=== PATIENT | male | born 1940 | race Caucasian/White ===

== ENCOUNTER 2017-10-27 12:35 | Inpatient (IN) | payer MEDICARE, MEDICAID ==
--- NOTE | 2017-10-27 13:25 | C.PDOC ---
History Of Present Illness 76yo male, history of HTN, diabetes, hyperlipidemia, presents to ED with complaints of bilateral leg weakness and pain to his hips and knees for the past few days. States he has been unable to walk home and he lives alone. He denies any falls or injuries. He also denies any chest pain, shortness of breath. Time Seen by Provider: 10/27/17 13:00 Chief Complaint (Nursing): Medical Clearance History Per: Patient History/Exam Limitations: no limitations Onset/Duration Of Symptoms: Days Current Symptoms Are (Timing): Still Present Past Medical History Reviewed: Historical Data, Nursing Documentation, Vital Signs Vital Signs: Last Vital Signs Temp 97.8 F 10/30/17 08:19 Pulse 109 H 10/30/17 08:19 Resp 20 10/30/17 08:19 BP 117/73 10/30/17 08:19 Pulse Ox 95 10/30/17 08:19 - Medical History PMH: Diabetes, HTN, Hypercholesterolemia Surgical History: Cholecystectomy - [facility] Procedures CLOSURE SKIN & SUBCUTANEOUS NEC (04/13/13) CUT & PREP PEDICLE GRAFT (03/01/13) ENDOSCOPIC REMOVAL OF STONE(S) FROM BILIARY TRACT (04/19/15) ENDOSCOPIC SPHINCTEROTOMY AND PAPILLOTOMY (04/19/15) EXCIS DEBRIDE OF WOUND, INFECT, OR BURN (03/01/13) LOC EXC LES METATAR/TAR (04/13/13) NONEXCIS DEBRID OF WOUND, INFECT, OR BURN (04/13/13) OTHER SKIN & SUBQ I D (04/13/13) PACKED CELL TRANSFUSION (04/13/13) TOE AMPUTATION (04/13/13) Family History: States: Unknown Family Hx - Social History Hx Tobacco Use: Yes Hx Alcohol Use: Yes (SOIALLY) Hx Substance Use: No - Immunization History Hx Tetanus Toxoid Vaccination: No Hx Influenza Vaccination: No Hx Pneumococcal Vaccination: No Review Of Systems Except As Marked, All Systems Reviewed And Found Negative. Constitutional: Negative for: Fever, Chills Cardiovascular: Negative for: Chest Pain Respiratory: Negative for: Shortness of Breath Gastrointestinal: Negative for: Abdominal Pain Musculoskeletal: Positive for: Leg Pain Neurological: Positive for: Weakness Physical Exam - Physical Exam Appears: Non-toxic, Other (cachectic appearing) Neck: Normal ROM, Supple Chest: Symmetrical Cardiovascular: Rhythm Regular Respiratory: Normal Breath Sounds Gastrointestinal/Abdominal: Normal Exam, Soft, No Tenderness Back: Normal Inspection, No CVA Tenderness Extremity: Normal ROM, Tenderness (mild tenderness to hips and knees bilaterally ), No Pedal Edema, No Swelling Neurological/Psych: Oriented x3, Normal Speech, Normal Cognition, Normal Motor ED Course And Treatment - Laboratory Results Result Diagrams: 10/29/17 06:31 0218 06:31 Medical Decision Making Medical Decision Making: Impression: Bilateral lower extremity pain ro metabolic, dvt, fx Plan: -- Labs -- XR knees bilateral -- XR Hips bilateral -- Venous Duplex Exam Bilateral lower extremities -- Toradol 30mg IVP dvt study neg. imaging neg as read by me. urine neg. noted na. urine lytes sent. discussed case with dr brown, accpets for admission, requests empiric antibiotics. ceftriaxone dosed Disposition - Disposition Disposition: HOSPITALIZED Disposition Time: 15:05 Condition: STABLE - Clinical Impression Clinical Impression: Hyponatremia, Leukocytosis - Scribe Statement The provider has reviewed the documentation as recorded by the Scribe (Aixa Corral) Provider Attestation: All medical record entries made by the Scribe were at my direction and personally dictated by me. I have reviewed the chart and agree that the record accurately reflects my personal performance of the history, physical exam, medical decision making, and the department course for this patient. I have also personally directed, reviewed, and agree with the discharge instructions and disposition. Decision To Admit - . Bed Request Type: Regular Admitting Physician: Mary Brown Patient Diagnosis: Hyponatremia, Leukocytosis
[2017-10-27 14:09] LABS: BASO # 0.1 K/uL (0.0-0.2); BASO % 0.7 % (0.0-2.0); EOS # 0.2 K/uL (0.0-0.7); EOS % 1.7 % (0.0-4.0); HEMOGLOBIN 12.1 g/dL (12.0-18.0); LYMPH % 7.8 % (20.0-40.0); MEAN CORPUSCULAR HGB CONC 34.4 g/dL (33.0-37.0); MONO # 0.6 K/uL (0.0-0.8); MONO % 4.6 % (0.0-10.0); NEUT # 11.4 K/uL (1.8-7.0); NEUT % 85.2 % (50.0-75.0); PLATELET COUNT 173 K/uL (130-400); RBC 3.78 Mil/uL (4.40-5.90); RED CELL DISTRIBUTION WIDTH 12.1 % (11.5-14.5); WHITE BLOOD COUNT 13.4 K/uL (4.8-10.8)
[2017-10-27 14:20] LABS: ALB/GLOB RATIO 0.7 (1.0-2.1); ALBUMIN 2.9 g/dL (3.5-5.0); ALT/SGPT 20 U/L (21-72); AST/SGOT 25 U/L (17-59); BLOOD UREA NITROGEN 18 mg/dL (9-20); CALCIUM 8.7 mg/dl (8.6-10.4); GFR AFRICAN-AMERICAN > 60; GFR NON-AFRICAN AMERICAN > 60
[2017-10-27 14:29] LABS: INR 1.2; PROTHROMBIN TIME 13.8 SECONDS (9.7-12.2)
[2017-10-27 14:36] LABS: SQUAMOUS EPITHIAL 1 /hpf (0-5); URINE BILIRUBIN NEGATIVE (NEGATIVE); URINE BLOOD 1+ (NEGATIVE); URINE CLARITY Clear (Clear); URINE COLOR Yellow (YELLOW); URINE GLUCOSE (UA) NORMAL (Normal); URINE LEUKOCYTE ESTERASE NEG Leu/uL (Negative); URINE NITRATE NEGATIVE (NEGATIVE); URINE PROTEIN NEGATIVE (NEGATIVE)
[2017-10-27 14:54] LABS: EOSINOPHIL 6 % (0-4); LYMPHOCYTE 9 % (20-40); MONOCYTE 5 % (0-10); NEUTROPHIL 80 % (50-75); PLATELET ESTIMATE NORMAL (NORMAL); TOTAL CELLS COUNTED 100
[2017-10-27] MEDS ORDERED: cefTRIAXone IV 1 gm in Dextros 50 ML IVPB ONE (15:02)
--- NOTE | 2017-10-27 15:22 | RAD ---
PROCEDURE: Bilateral Knee Radiographs. HISTORY: pain COMPARISON: None. FINDINGS: BONES: Right Knee: No fracture Left Knee: No fracture JOINTS: Right Knee: Paucity of osteoarthritis the patient is 76 years of age. Left knee: Same as above SOFT TISSUES: Right Knee: Arterial calcification Left Knee: Same as above JOINT EFFUSION: Right Knee: None. Left Knee: None. OTHER FINDINGS: None. IMPRESSION: Minimal osteoarthrosis bilateral medial femoral tibial compartments most notable. Asymmetrical sclerosis and mild cortical hyperostoses left patella. No fractures Bilateral anterior calcifications
--- NOTE | 2017-10-27 15:31 | RAD ---
PROCEDURE: HISTORY: pain COMPARISON: [facility] 04/18/2015 ; no prior hips TECHNIQUE: AP view of the pelvis and applicable frog leg views obtained. FINDINGS: Prominent lumbosacral spondylosis -similar Bilateral hemipelvic atherosclerotic calcifications. Bilateral hip arthrosis. Right inferior pubic ramus on this exam slightly thicker in appearance possibly technical no acute fracture dislocation suggested. IMPRESSION: No acute fracture or lytic lesion. Multifocal arthrosis
[2017-10-27] MEDS: Sodium Chloride 0.9% 1,000 ML IV SCH (16:22)
[2017-10-27] MEDS ORDERED: Sodium Chloride 0.9% 1,000 ML ONE (16:39)
--- NOTE | 2017-10-27 16:49 | VASCLAB ---
PROCEDURE: Lower Extremity Venous Duplex Exam. HISTORY: leg pain PRIORS: None. TECHNIQUE: Bilateral common femoral, femoral, popliteal and posterior tibial, peroneal and great saphenous veins were evaluated. Flow was assessed with color Doppler, compressibility, assessment of phasic flow and augmentation response. Report prepared by TERRI Zaidi, RVT FINDINGS: RIGHT: 1. Common Femoral Vein: 1.1. Compressibility - Fully compressible: Thrombus - None : Flow - Phasic: Augmentation -Normal: Reflux - None. 2. Femoral Vein: 2.1. Compressibility - Fully compressible: Thrombus - None : Flow - Phasic: Augmentation -Normal: Reflux - None. 3. Popliteal Vein: 3.1. Compressibility - Fully compressible: Thrombus - None : Flow - Phasic: Augmentation -Normal: Reflux - None. 4. Posterior Tibial Vein: 4.1. Compressibility - Fully compressible: Thrombus - None: Flow - Phasic: Augmentation -Normal: Reflux - None. 5. Peroneal Vein: 5.1. Compressibility - Fully compressible: Thrombus - None: Flow - Phasic: Augmentation -Normal: Reflux - None. 6. Great Saphenous Vein: 6.1. Compressibility - Fully compressible: Thrombus - None: Flow - Phasic: Augmentation - Normal: Reflux - None. LEFT: 1. Common Femoral Vein: 1.1. Compressibility - Fully compressible: Thrombus - None: Flow - Phasic: Augmentation -Normal: Reflux - None. 2. Femoral Vein: 2.1. Compressibility - Fully compressible: Thrombus - None: Flow - Phasic: Augmentation -Normal: Reflux - None. 3. Popliteal Vein: 3.1. Compressibility - Fully compressible: Thrombus - None : Flow - Phasic: Augmentation -Normal: Reflux - None. 4. Posterior Tibial Vein: 4.1. Compressibility - Fully compressible: Thrombus - None: Flow - Phasic: Augmentation -Normal: Reflux - None. 5. Peroneal Vein: 5.1. Compressibility - Fully compressible: Thrombus - None: Flow - Phasic: Augmentation -Normal: Reflux - None. 6. Great Saphenous Vein: 6.1. Compressibility - Fully compressible: Thrombus - None: Flow - Phasic: Augmentation - Normal: Reflux - None. OTHER FINDINGS: Right: None significant. Left: None significant. IMPRESSION: Right: No evidence of deep or superficial vein thrombosis of the right lower extremity. Normal valve function noted of the right side. Left: No evidence of deep or superficial vein thrombosis of the left lower extremity. Normal valve function noted of the left side.
--- NOTE | 2017-10-27 16:54 | CP.PCM.HP ---
Past Patient History - Past Social History Smoking Status: Current Some Days Smoker - CARDIAC Hx Hypercholesterolemia: Yes Hx Hypertension: Yes - HEENT Hx Cataracts: Yes - ENDOCRINE/METABOLIC Hx Diabetes Mellitus Type 2: Yes - MUSCULOSKELETAL/RHEUMATOLOGICAL Hx Falls: Yes - PSYCHIATRIC Hx Substance Use: No - SURGICAL HISTORY Hx Cholecystectomy: Yes - ANESTHESIA Hx Anesthesia: Yes Hx Anesthesia Reactions: No Hx Malignant Hyperthermia: No Meds Allergies/Adverse Reactions: Allergies Allergy/AdvReac Type Severity Reaction Status Date / Time No Known Allergies Allergy Verified 11/15/16 14:12 Physical Exam - Constitutional Appears: Well - Head Exam Head Exam: ATRAUMATIC, NORMAL INSPECTION, NORMOCEPHALIC - Eye Exam Eye Exam: EOMI, Normal appearance, PERRL Pupil Exam: NORMAL ACCOMODATION, PERRL - ENT Exam ENT Exam: Mucous Membranes Moist, Normal Exam - Neck Exam Neck exam: Positive for: Normal Inspection - Respiratory Exam Respiratory Exam: Decreased Breath Sounds - Cardiovascular Exam Cardiovascular Exam: REGULAR RHYTHM, +S1, +S2 - GI/Abdominal Exam GI & Abdominal Exam: Diminished Bowel Sounds, Soft - Rectal Exam Rectal Exam: Deferred Results - Vital Signs Recent Vital Signs: Last Vital Signs Temp 98.5 F 10/27/17 13:56 Pulse 105 H 10/27/17 15:58 Resp 18 10/27/17 15:58 BP 131/77 10/27/17 15:58 Pulse Ox 97 10/27/17 15:58 - Labs Result Diagrams: 10/28/17 10:59 10/28/17 10:59 Labs: Laboratory Results - last 24 hr 10/27/17 10/27/17 10/27/17 14:05 14:05 14:05 WBC 13.4 H D RBC 3.78 L Hgb 12.1 Hct 35.1 MCV 93.0 D MCH 32.0 H MCHC 34.4 RDW 12.1 Plt Count 173 MPV 10.0 Neut % (Auto) 85.2 H Lymph % (Auto) 7.8 L [place] % (Auto) 4.6 Eos % (Auto) 1.7 Baso % (Auto) 0.7 Neut # 11.4 H Lymph # 1.0 [place] # 0.6 Eos # 0.2 Baso # 0.1 Neutrophils % (Manual) 80 H Lymphocytes % (Manual) 9 L Monocytes % (Manual) 5 Eosinophils % (Manual) 6 H Platelet Estimate Normal RBC Morphology Normal PT 13.8 H INR 1.2 APTT 30 Sodium 126 L Potassium 5.0 Chloride 95 L Carbon Dioxide 27 Anion Gap 9 L BUN 18 Creatinine 0.8 Est GFR ( Amer) > 60 Est GFR (Non-Af Amer) > 60 Random Glucose 177 H Calcium 8.7 Total Bilirubin 0.6 AST 25 ALT 20 L D Alkaline Phosphatase 117 Total Protein 7.4 Albumin 2.9 L Globulin 4.5 H Albumin/Globulin Ratio 0.7 L Urine Color Urine Clarity Urine pH Ur Specific [place] Urine Protein Urine Glucose (UA) Urine Ketones Urine Blood Urine Nitrate Urine Bilirubin Urine Urobilinogen Ur Leukocyte Esterase Urine WBC (Auto) Urine RBC (Auto) Ur Squamous Epith Cells Influenza Typ A,B (EIA) 10/27/17 10/27/17 14:22 15:03 WBC RBC Hgb Hct MCV MCH MCHC RDW Plt Count MPV Neut % (Auto) Lymph % (Auto) [place] % (Auto) Eos % (Auto) Baso % (Auto) Neut # Lymph # [place] # Eos # Baso # Neutrophils % (Manual) Lymphocytes % (Manual) Monocytes % (Manual) Eosinophils % (Manual) Platelet Estimate RBC Morphology PT INR APTT Sodium Potassium Chloride Carbon Dioxide Anion Gap BUN Creatinine Est GFR ( Amer) Est GFR (Non-Af Amer) Random Glucose Calcium Total Bilirubin AST ALT Alkaline Phosphatase Total Protein Albumin Globulin Albumin/Globulin Ratio Urine Color Yellow Urine Clarity Clear Urine pH 6.0 Ur Specific [place] 1.013 Urine Protein Negative Urine Glucose (UA) Normal Urine Ketones Trace Urine Blood 1+ H Urine Nitrate Negative Urine Bilirubin Negative Urine Urobilinogen 4.0 Ur Leukocyte Esterase Neg Urine WBC (Auto) 1 Urine RBC (Auto) 11 H Ur Squamous Epith Cells 1 Influenza Typ A,B (EIA) Negative for flu a/b Assessment & Plan - Assessment and Plan (Free Text) Plan: rocephin protonix lovenox icf id consult dr. sirisha cline same no more dizzyness
[2017-10-27 17:11] VITALS: RESP 20
[2017-10-27] MEDS: Insulin Detemir 100 units/ml Vial (Levemir) SC SCH (18:29)
[2017-10-28 05:31] LABS: OSMOLALITY,URINE 458 mosm/kg (300-1000)
[2017-10-28] MEDS: Sodium Chloride 0.9% 1,000 ML IV SCH ×3 (05:41→15:05)
[2017-10-28] MEDS: Insulin Detemir 100 units/ml Vial (Levemir) SC SCH ×2 (11:05→17:42)
[2017-10-28 11:09] LABS: BASO # 0.1 K/uL (0.0-0.2); BASO % 0.7 % (0.0-2.0); EOS # 0.2 K/uL (0.0-0.7); EOS % 1.8 % (0.0-4.0); HEMOGLOBIN 11.8 g/dL (12.0-18.0); LYMPH # 1.1 K/uL (1.0-4.3); LYMPH % 8.4 % (20.0-40.0); MEAN CELL VOLUME 92.5 fL (80.0-94.0); MEAN CORPUSCULAR HEMOGLOBIN 31.9 pg (27.0-31.0); MEAN CORPUSCULAR HGB CONC 34.5 g/dL (33.0-37.0); MEAN PLATELET VOLUME 10.1 fL (7.2-11.7); MONO # 0.9 K/uL (0.0-0.8); NEUT # 10.8 K/uL (1.8-7.0); NEUT % 82.1 % (50.0-75.0); NRBC % 0.1 % (0.0-2.0); PLATELET COUNT 167 K/uL (130-400); RED CELL DISTRIBUTION WIDTH 12.2 % (11.5-14.5); WHITE BLOOD COUNT 13.2 K/uL (4.8-10.8)
[2017-10-28 11:25] LABS: GFR AFRICAN-AMERICAN > 60; GFR NON-AFRICAN AMERICAN > 60
[2017-10-28 11:37] LABS: BLOOD UREA NITROGEN 16 mg/dL (9-20); CALCIUM 8.7 mg/dl (8.6-10.4)
[2017-10-28 12:38] LABS: BANDS 3 % (0-2); EOSINOPHIL 4 % (0-4); LYMPHOCYTE 10 % (20-40); MONOCYTE 4 % (0-10); NEUTROPHIL 79 % (50-75); PLATELET ESTIMATE NORMAL (NORMAL); TOTAL CELLS COUNTED 100
--- NOTE | 2017-10-28 13:15 | RAD ---
HISTORY: leukocytosis COMPARISON: Chest radiograph dated 11/15/2016. FINDINGS: LUNGS: Stable chronic prominence of the bilateral interstitial markings with fibrotic changes. No focal consolidation. PLEURA: No significant pleural effusion identified, no pneumothorax apparent. CARDIOVASCULAR: Atherosclerotic aortic calcifications. Cardiomediastinal silhouette stably prominent. OSSEOUS STRUCTURES: Unchanged. VISUALIZED UPPER ABDOMEN: Normal. OTHER FINDINGS: None. IMPRESSION: Stable chronic prominence of the bilateral interstitial markings with fibrotic changes. No focal consolidation or pleural effusion.
--- NOTE | 2017-10-28 18:17 | CP.PCM.PN ---
Subjective - Date & Time of Evaluation Date of Evaluation: 10/28/17 Time of Evaluation: 08:20 - Subjective Subjective: clinically same Objective - Vital Signs/Intake and Output Vital Signs (last 24 hours): Temp Pulse Resp BP Pulse Ox 98.8 F 103 H 20 124/73 96 10/28/17 08:04 10/28/17 14:58 10/28/17 08:04 10/28/17 14:58 10/28/17 14:58 Intake and Output: 10/28/17 10/28/17 06:59 18:59 Intake Total 1040 880 Output Total 400 400 Balance 640 480 - Medications Medications: Current Medications Aspirin (Ecotrin) 81 mg PO DAILY [facility] Last Admin: 10/28/17 11:04 Dose: 81 mg Clopidogrel Bisulfate (Plavix) 75 mg PO DAILY [facility] Last Admin: 10/28/17 11:04 Dose: 75 mg Gabapentin (Neurontin) 300 mg PO DAILY [facility] Last Admin: 10/28/17 11:04 Dose: 300 mg Heparin Sodium (Porcine) (Heparin) 5,000 units SC Q12 [facility] Last Admin: 10/28/17 11:04 Dose: 5,000 units Ceftriaxone Sodium 1 gm/ (Sodium Chloride) 100 mls @ 100 mls/hr IVPB DAILY [facility] Last Admin: 10/28/17 11:09 Dose: 100 mls/hr Sodium Chloride (Sodium Chloride 0.9%) 1,000 mls @ 80 mls/hr IV .[id number] [facility] Last Admin: 10/28/17 15:05 Dose: 80 mls/hr Azithromycin 500 mg/ Sodium (Chloride) 250 mls @ 250 mls/hr IVPB Q24H [facility] Insulin Detemir (Levemir) 20 unit SC BID [facility] Last Admin: 10/28/17 17:42 Dose: 20 unit Losartan Potassium (Cozaar) 25 mg PO DAILY [facility] Last Admin: 10/28/17 11:04 Dose: 25 mg Metformin HCl (Glucophage) 500 mg PO BID [facility] Last Admin: 10/28/17 17:42 Dose: 500 mg Pneumococcal Polyvalent Vaccine (Pneumovax 23 Vaccine) 0.5 ml SC .ONCE ONE Stop: 10/29/17 10:01 Rosuvastatin Calcium (Crestor) 5 mg PO DAILY [facility] Last Admin: 10/28/17 11:04 Dose: 5 mg Tramadol HCl (Ultram) 50 mg PO TID PRN PRN Reason: Pain, moderate (4-7) Last Admin: 10/28/17 12:19 Dose: 50 mg - Labs Labs: 10/28/17 10:59 10/28/17 10:59 PT 13.8 SECONDS (9.7-12.2) H 10/27/17 14:05 INR 1.2 10/27/17 14:05 APTT 30 SECONDS (21-34) 10/27/17 14:05 - Constitutional Appears: Well - Head Exam Head Exam: ATRAUMATIC, NORMAL INSPECTION, NORMOCEPHALIC - Eye Exam Eye Exam: EOMI, Normal appearance, PERRL Pupil Exam: NORMAL ACCOMODATION, PERRL - ENT Exam ENT Exam: Mucous Membranes Moist, Normal Exam - Neck Exam Neck Exam: Full ROM, Normal Inspection. absent: Lymphadenopathy - Respiratory Exam Respiratory Exam: Decreased Breath Sounds - Cardiovascular Exam Cardiovascular Exam: REGULAR RHYTHM, +S1, +S2 - GI/Abdominal Exam GI & Abdominal Exam: Soft, Diminished Bowel Sounds - Rectal Exam Rectal Exam: Deferred
--- NOTE | 2017-10-28 19:12 | CP.PCM.CON ---
History of Present Illness - History of Present Illness History of Present Illness: 76yo male, history of HTN, diabetes, hyperlipidemia, presents to ED with complaints of bilateral leg weakness and pain to his hips and knees for the past few days. States he has been unable to walk home and he lives alone. He denies any falls or injuries. He also denies any chest pain, shortness of breath. - Medical History PMH: Diabetes, HTN, Hypercholesterolemia Surgical History: Cholecystectomy - [facility] Procedures CLOSURE SKIN & SUBCUTANEOUS NEC (04/13/13) CUT & PREP PEDICLE GRAFT (03/01/13) ENDOSCOPIC REMOVAL OF STONE(S) FROM BILIARY TRACT (04/19/15) ENDOSCOPIC SPHINCTEROTOMY AND PAPILLOTOMY (04/19/15) EXCIS DEBRIDE OF WOUND, INFECT, OR BURN (03/01/13) LOC EXC LES METATAR/TAR (04/13/13) NONEXCIS DEBRID OF WOUND, INFECT, OR BURN (04/13/13) OTHER SKIN & SUBQ I D (04/13/13) PACKED CELL TRANSFUSION (04/13/13) TOE AMPUTATION (04/13/13) Review of Systems - Constitutional Constitutional: As Per HPI - EENT Eyes: absent: As Per HPI, Blind Spots, Blurred Vision, Change in Vision, Decreased Night Vision, Diplopia, Discharge, Dry Eye, Exophthalmos, Floaters, Irritation, Itchy Eyes, Loss of Peripheral Vision, Pain, Photophobia, Requires Corrective Lenses, Sees Flashes, Spots in Vision, Tunnel Vision, Other Visual Disturbances, Loss of Vision, Other Ears: absent: As Per HPI, Decreased Hearing, Ear Discharge, Ear Pain, Tinnitus, Abnormal Hearing, Disequilibrium, Dizziness, Other Nose/Mouth/Throat: absent: As Per HPI, Epistaxis, Nasal Congestion, Nasal Discharge, Nasal Obstruction, Nasal Trauma, Nose Pain, Post Nasal Drip, Sinus Pain, Sinus Pressure, Bleeding Gums, Change in Voice, Dental Pain, Dry Mouth, Dysphagia, Halitosis, Hoarsness, Lip Swelling, Mouth Lesions, Mouth Pain, Odynophagia, Sore Throat, Throat Swelling, Tongue Swelling, Facial Pain, Neck Pain, Neck Mass, Other - Cardiovascular Cardiovascular: absent: As Per HPI, Acrocyanosis, Chest Pain, Chest Pain at Rest , Chest Pain with Activity, Claudication, Diaphoresis, Dyspnea, Dyspnea on Exertion, Edema, Irregular Heart Rhythm, Pain Radiating to Arm/Neck/Jaw, Leg Edema, Leg Ulcers, Lightheadedness, Orthopnea, Palpitations, Paroxysmal Nocturnal Dyspnea, Pedal Edema, Radiating Pain, Rapid Heart Rate, Slow Heart Rate, Syncope, Other - Respiratory Respiratory: absent: As Per HPI, Cough, Dyspnea, Hemoptysis, Dyspnea on Exertion , Wheezing, Snoring, Stridor, Pain on Inspiration, Chest Congestion, Excessive Mucous Production, Change in Mucous Color, Pain with Coughing, Other - Gastrointestinal Gastrointestinal: absent: As Per HPI, Abdominal Pain, Belching, Bloating, Change in Bowel Habits, Change in Stool Character, Coffee Ground Emesis, Constipation, Cramping, Diarrhea, Dyspepsia, Dysphagia, Early Satiety, Excessive Flatus, Fecal Incontinence, Heartburn, Hematemesis, Hematochezia, Loose Stools, Melena, Nausea, Odynophagia, Temesmus, Vomiting, Other - Genitourinary Genitourinary: absent: As Per HPI, Change in Urinary Stream, Difficulty Urinating, Dysuria, Flank Pain, Hematuria, Pyuria, Nocturia, Urinary Incontinence, Urinary Frequency, Urinary Hesitance, Urinary Urgency, Voiding Freq/Small Amts, Freq UTI, Hx Renal/Bladder Calculi, Hx /Renal Surgery, Bladder Distension, Other - Musculoskeletal Musculoskeletal: As Per HPI - Integumentary Integumentary: absent: As Per HPI, Acne, Alopecia, Bleeding Lesions, Change in Hair, Change in Nails, Change in Pigmentation, Changing Lesions, Dry Skin, Erythema, Furuncle, Hirsutism, Lesions, New Lesions, Non-Healing Lesions, Photosensitivity, Pruritus, Rash, Skin Pain, Skin Ulcer, Sores, Striae, Swelling , Unusual Bruising, Wounds, Jaundice, Other - Neurological Neurological: As Per HPI - Psychiatric Psychiatric: absent: As Per HPI, Abnormal Sleep Pattern, Anhedonia, Anxiety, Auditory Hallucinations, Behavioral Changes, Change in Appetite, Change in Libido, Confusion, Depression, Difficulty Concentrating, Hallucinations, Homicidal Ideation, Hopelessness, Irritability, Memory Loss, Mood Swings, Panic Attacks, Paranoia, Suicidal Ideation, Visual Hallucinations, Tactile Hallucinations, Other - Endocrine Endocrine: absent: As Per HPI, Change in Body Appearance, Change in Libido, Cold Intolorance, Deepening of Voice, Excessive Sweating, Fatigue, Flushing, Heat Intolorance, Increase in Ring/Shoe/Hat Size, Palpitations, Polydipsia, Polyphagia, Polyuria, Other - Hematologic/Lymphatic Hematologic: absent: As Per HPI, Easy Bleeding, Easy Bruising, Lymphadenopathy, Other Past Patient History - Past Social History Smoking Status: Current Some Days Smoker - CARDIAC Hx Hypercholesterolemia: Yes Hx Hypertension: Yes - HEENT Hx Cataracts: Yes - ENDOCRINE/METABOLIC Hx Diabetes Mellitus Type 2: Yes - MUSCULOSKELETAL/RHEUMATOLOGICAL Hx Falls: Yes - PSYCHIATRIC Hx Substance Use: No - SURGICAL HISTORY Hx Cholecystectomy: Yes - ANESTHESIA Hx Anesthesia: Yes Hx Anesthesia Reactions: No Hx Malignant Hyperthermia: No Meds Allergies/Adverse Reactions: Allergies Allergy/AdvReac Type Severity Reaction Status Date / Time No Known Allergies Allergy Verified 11/15/16 14:12 - Medications Medications: Current Medications Aspirin (Ecotrin) 81 mg PO DAILY [facility] Last Admin: 10/28/17 11:04 Dose: 81 mg Clopidogrel Bisulfate (Plavix) 75 mg PO DAILY [facility] Last Admin: 10/28/17 11:04 Dose: 75 mg Gabapentin (Neurontin) 300 mg PO DAILY [facility] Last Admin: 10/28/17 11:04 Dose: 300 mg Heparin Sodium (Porcine) (Heparin) 5,000 units SC Q12 [facility] Last Admin: 10/28/17 11:04 Dose: 5,000 units Ceftriaxone Sodium 1 gm/ (Sodium Chloride) 100 mls @ 100 mls/hr IVPB DAILY [facility] Last Admin: 10/28/17 11:09 Dose: 100 mls/hr Sodium Chloride (Sodium Chloride 0.9%) 1,000 mls @ 80 mls/hr IV .[id number] [facility] Last Admin: 10/28/17 15:05 Dose: 80 mls/hr Azithromycin 500 mg/ Sodium (Chloride) 250 mls @ 250 mls/hr IVPB Q24H [facility] Insulin Detemir (Levemir) 20 unit SC BID [facility] Last Admin: 10/28/17 17:42 Dose: 20 unit Losartan Potassium (Cozaar) 25 mg PO DAILY [facility] Last Admin: 10/28/17 11:04 Dose: 25 mg Metformin HCl (Glucophage) 500 mg PO BID [facility] Last Admin: 10/28/17 17:42 Dose: 500 mg Pneumococcal Polyvalent Vaccine (Pneumovax 23 Vaccine) 0.5 ml SC .ONCE ONE Stop: 10/29/17 10:01 Rosuvastatin Calcium (Crestor) 5 mg PO DAILY [facility] Last Admin: 10/28/17 11:04 Dose: 5 mg Tramadol HCl (Ultram) 50 mg PO TID PRN PRN Reason: Pain, moderate (4-7) Last Admin: 10/28/17 12:19 Dose: 50 mg Physical Exam - Constitutional Appears: Non-toxic, Chronically Ill - Head Exam Head Exam: NORMOCEPHALIC - Eye Exam Eye Exam: PERRL - ENT Exam ENT Exam: Mucous Membranes Dry - Neck Exam Neck exam: Negative for: Lymphadenopathy - Respiratory Exam Respiratory Exam: Decreased Breath Sounds - Cardiovascular Exam Cardiovascular Exam: REGULAR RHYTHM - GI/Abdominal Exam GI & Abdominal Exam: Diminished Bowel Sounds, Soft - Rectal Exam Rectal Exam: Deferred - Exam Exam: NORMAL INSPECTION - Extremities Exam Extremities exam: Positive for: tenderness, pedal pulses present. Negative for : calf tenderness, pedal edema - Back Exam Back exam: absent: CVA tenderness (L), CVA tenderness (R) - Neurological Exam Neurological exam: Alert, CN II-XII Intact, Oriented x3 Additional comments: weakness bilat - Psychiatric Exam Psychiatric exam: Anxious - Skin Skin Exam: Dry Results - Vital Signs Recent Vital Signs: Last Vital Signs Temp 98.8 F 10/28/17 08:04 Pulse 103 H 10/28/17 14:58 Resp 20 10/28/17 08:04 BP 124/73 10/28/17 14:58 Pulse Ox 96 10/28/17 14:58 - Labs Result Diagrams: 10/28/17 10:59 10/28/17 10:59 Labs: Laboratory Results - last 24 hr 10/27/17 10/27/17 10/27/17 18:27 19:44 21:54 WBC RBC Hgb Hct MCV MCH MCHC RDW Plt Count MPV Neut % (Auto) Lymph % (Auto) [place] % (Auto) Eos % (Auto) Baso % (Auto) Neut # (Auto) Lymph # (Auto) [place] # (Auto) Eos # (Auto) Baso # (Auto) Neutrophils % (Manual) Band Neutrophils % Lymphocytes % (Manual) Monocytes % (Manual) Eosinophils % (Manual) Platelet Estimate RBC Morphology Sodium Potassium Chloride Carbon Dioxide Anion Gap BUN Creatinine Est GFR ( Amer) Est GFR (Non-Af Amer) POC Glucose (mg/dL) 238 H 198 H Random Glucose Serum Osmolality 293 Calcium Urine Osmolality Ur Random Sodium 10/28/17 10/28/17 10/28/17 05:00 07:34 10:50 WBC RBC Hgb Hct MCV MCH MCHC RDW Plt Count MPV Neut % (Auto) Lymph % (Auto) [place] % (Auto) Eos % (Auto) Baso % (Auto) Neut # (Auto) Lymph # (Auto) [place] # (Auto) Eos # (Auto) Baso # (Auto) Neutrophils % (Manual) Band Neutrophils % Lymphocytes % (Manual) Monocytes % (Manual) Eosinophils % (Manual) Platelet Estimate RBC Morphology Sodium Potassium Chloride Carbon Dioxide Anion Gap BUN Creatinine Est GFR ( Amer) Est GFR (Non-Af Amer) POC Glucose (mg/dL) 84 130 H Random Glucose Serum Osmolality Calcium Urine Osmolality 458 Ur Random Sodium 150 10/28/17 10/28/17 10/28/17 10:59 10:59 16:20 WBC 13.2 H RBC 3.70 L Hgb 11.8 L Hct 34.2 L MCV 92.5 MCH 31.9 H MCHC 34.5 RDW 12.2 Plt Count 167 MPV 10.1 Neut % (Auto) 82.1 H Lymph % (Auto) 8.4 L [place] % (Auto) 7.0 Eos % (Auto) 1.8 Baso % (Auto) 0.7 Neut # (Auto) 10.8 H Lymph # (Auto) 1.1 [place] # (Auto) 0.9 H Eos # (Auto) 0.2 Baso # (Auto) 0.1 Neutrophils % (Manual) 79 H Band Neutrophils % 3 H Lymphocytes % (Manual) 10 L Monocytes % (Manual) 4 Eosinophils % (Manual) 4 Platelet Estimate Normal RBC Morphology Normal Sodium 129 L Potassium 4.3 Chloride 96 L Carbon Dioxide 27 Anion Gap 11 BUN 16 Creatinine 0.9 Est GFR ( Amer) > 60 Est GFR (Non-Af Amer) > 60 POC Glucose (mg/dL) 240 H Random Glucose 141 H Serum Osmolality Calcium 8.7 Urine Osmolality Ur Random Sodium Assessment & Plan (1) Hyponatremia Status: Acute (2) Leukocytosis Status: Acute (3) Arthritis Status: Acute (4) Back contusion Status: Acute - Assessment and Plan (Free Text) Assessment: consider neuro eval will cont iv antibiotics foir now Plan: await urine cultures
[2017-10-28] MEDS: Azithromycin 500 MG in Sodium Chloride 0.9% 250 ML IVPB SCH (20:00)
[2017-10-29] MEDS: Sodium Chloride 0.9% 1,000 ML IV SCH (05:40)
[2017-10-29 06:51] LABS: BASO # 0.1 K/uL (0.0-0.2); BASO % 0.5 % (0.0-2.0); EOS # 0.2 K/uL (0.0-0.7); EOS % 1.5 % (0.0-4.0); HEMOGLOBIN 12.2 g/dL (12.0-18.0); LYMPH # 1.1 K/uL (1.0-4.3); LYMPH % 7.5 % (20.0-40.0); MEAN CELL VOLUME 92.6 fL (80.0-94.0); MEAN CORPUSCULAR HEMOGLOBIN 32.2 pg (27.0-31.0); MEAN CORPUSCULAR HGB CONC 34.8 g/dL (33.0-37.0); MEAN PLATELET VOLUME 10.1 fL (7.2-11.7); MONO # 1.1 K/uL (0.0-0.8); NEUT # 12.7 K/uL (1.8-7.0); NEUT % 83.5 % (50.0-75.0); PLATELET COUNT 172 K/uL (130-400); RBC 3.78 Mil/uL (4.40-5.90); WHITE BLOOD COUNT 15.3 K/uL (4.8-10.8)
--- NOTE | 2017-10-29 07:07 | CP.PCM.CON ---
History of Present Illness - History of Present Illness History of Present Illness: CONSULT DICTATED PTOSIS WITH PROXIMAL MUSCLE WEAKNESS LEGS > ARMS R/O PARASAGITTAL PROCESS STROKE /MASS NMJ DISEASE MYASTHENIA GRAVIS Vs PARANEOPLASTIC PROCESS SEVERE SENSORY MOTOR NEUROPATHY MRI/CHEST CT/BLOOD WORK UP DVT PROPHYLAXIS APPROPRIATE ANTIBIOTIC - AVOID NMJ DYSFUNCTIONAL DRUGS Past Patient History - Past Social History Smoking Status: Current Some Days Smoker - CARDIAC Hx Hypercholesterolemia: Yes Hx Hypertension: Yes - HEENT Hx Cataracts: Yes - ENDOCRINE/METABOLIC Hx Diabetes Mellitus Type 2: Yes - MUSCULOSKELETAL/RHEUMATOLOGICAL Hx Falls: Yes - PSYCHIATRIC Hx Substance Use: No - SURGICAL HISTORY Hx Cholecystectomy: Yes - ANESTHESIA Hx Anesthesia: Yes Hx Anesthesia Reactions: No Hx Malignant Hyperthermia: No Meds Allergies/Adverse Reactions: Allergies Allergy/AdvReac Type Severity Reaction Status Date / Time No Known Allergies Allergy Verified 11/15/16 14:12 - Medications Medications: Current Medications Aspirin (Ecotrin) 81 mg PO DAILY [facility] Last Admin: 10/28/17 11:04 Dose: 81 mg Clopidogrel Bisulfate (Plavix) 75 mg PO DAILY [facility] Last Admin: 10/28/17 11:04 Dose: 75 mg Gabapentin (Neurontin) 300 mg PO DAILY [facility] Last Admin: 10/28/17 11:04 Dose: 300 mg Heparin Sodium (Porcine) (Heparin) 5,000 units SC Q12 [facility] Last Admin: 10/28/17 21:31 Dose: 5,000 units Ceftriaxone Sodium 1 gm/ (Sodium Chloride) 100 mls @ 100 mls/hr IVPB DAILY [facility] Last Admin: 10/28/17 11:09 Dose: 100 mls/hr Sodium Chloride (Sodium Chloride 0.9%) 1,000 mls @ 80 mls/hr IV .[id number] [facility] Last Admin: 10/29/17 05:40 Dose: Not Given Azithromycin 500 mg/ Sodium (Chloride) 250 mls @ 250 mls/hr IVPB Q24H [facility] Last Admin: 10/28/17 20:00 Dose: 250 mls/hr Insulin Detemir (Levemir) 20 unit SC BID [facility] Last Admin: 10/28/17 17:42 Dose: 20 unit Losartan Potassium (Cozaar) 25 mg PO DAILY [facility] Last Admin: 10/28/17 11:04 Dose: 25 mg Metformin HCl (Glucophage) 500 mg PO BID [facility] Last Admin: 10/28/17 17:42 Dose: 500 mg Pneumococcal Polyvalent Vaccine (Pneumovax 23 Vaccine) 0.5 ml SC .ONCE ONE Stop: 10/29/17 10:01 Rosuvastatin Calcium (Crestor) 5 mg PO DAILY [facility] Last Admin: 10/28/17 11:04 Dose: 5 mg Tramadol HCl (Ultram) 50 mg PO TID PRN PRN Reason: Pain, moderate (4-7) Last Admin: 10/28/17 12:19 Dose: 50 mg Results - Vital Signs Recent Vital Signs: Last Vital Signs Temp 99.6 F 10/29/17 00:00 Pulse 100 H 10/29/17 00:00 Resp 20 10/29/17 00:00 BP 122/63 10/29/17 00:00 Pulse Ox 94 L 10/29/17 00:00 - Labs Result Diagrams: 10/28/17 10:59 10/28/17 10:59 Labs: Laboratory Results - last 24 hr 10/28/17 10/28/17 10/28/17 07:34 10:50 10:59 WBC 13.2 H RBC 3.70 L Hgb 11.8 L Hct 34.2 L MCV 92.5 MCH 31.9 H MCHC 34.5 RDW 12.2 Plt Count 167 MPV 10.1 Neut % (Auto) 82.1 H Lymph % (Auto) 8.4 L [place] % (Auto) 7.0 Eos % (Auto) 1.8 Baso % (Auto) 0.7 Neut # (Auto) 10.8 H Lymph # (Auto) 1.1 [place] # (Auto) 0.9 H Eos # (Auto) 0.2 Baso # (Auto) 0.1 Neutrophils % (Manual) 79 H Band Neutrophils % 3 H Lymphocytes % (Manual) 10 L Monocytes % (Manual) 4 Eosinophils % (Manual) 4 Platelet Estimate Normal RBC Morphology Normal Sodium Potassium Chloride Carbon Dioxide Anion Gap BUN Creatinine Est GFR ( Amer) Est GFR (Non-Af Amer) POC Glucose (mg/dL) 84 130 H Random Glucose Calcium 10/28/17 10/28/17 10/28/17 10:59 16:20 21:35 WBC RBC Hgb Hct MCV MCH MCHC RDW Plt Count MPV Neut % (Auto) Lymph % (Auto) [place] % (Auto) Eos % (Auto) Baso % (Auto) Neut # (Auto) Lymph # (Auto) [place] # (Auto) Eos # (Auto) Baso # (Auto) Neutrophils % (Manual) Band Neutrophils % Lymphocytes % (Manual) Monocytes % (Manual) Eosinophils % (Manual) Platelet Estimate RBC Morphology Sodium 129 L Potassium 4.3 Chloride 96 L Carbon Dioxide 27 Anion Gap 11 BUN 16 Creatinine 0.9 Est GFR ( Amer) > 60 Est GFR (Non-Af Amer) > 60 POC Glucose (mg/dL) 240 H 266 H Random Glucose 141 H Calcium 8.7
[2017-10-29 07:11] LABS: ALB/GLOB RATIO 0.6 (1.0-2.1); ALBUMIN 2.7 g/dL (3.5-5.0); ALT/SGPT 22 U/L (21-72); AST/SGOT 28 U/L (17-59); BLOOD UREA NITROGEN 13 mg/dL (9-20); CALCIUM 8.2 mg/dl (8.6-10.4); GFR AFRICAN-AMERICAN > 60; GFR NON-AFRICAN AMERICAN > 60
[2017-10-29 08:56] LABS: FREE T4 2.15 ng/dL (0.78-2.19)
[2017-10-29 09:27] LABS: FOLATE 18.5 ng/mL
[2017-10-29] MEDS ORDERED: Pneumococcal 23-Valent Vaccine SC ONE (10:00)
[2017-10-29 11:32] LABS: BANDS 4 % (0-2); EOSINOPHIL 3 % (0-4); LYMPHOCYTE 11 % (20-40); MONOCYTE 11 % (0-10); NEUTROPHIL 71 % (50-75); PLATELET ESTIMATE NORMAL (NORMAL); TOTAL CELLS COUNTED 100
[2017-10-29 11:33] LABS: LARGE PLATELETS PRESENT
[2017-10-29] MEDS: Insulin Detemir 100 units/ml Vial (Levemir) SC SCH ×2 (12:02→18:08)
--- NOTE | 2017-10-29 13:05 | VASCLAB ---
PROCEDURE: HISTORY: Weakness COMPARISON: None available. TECHNIQUE: Grayscale and duplex Doppler evaluation of the cervical carotid and vertebral arteries were performed. The common carotid, carotid bifurcations and cervical Internal Carotid Artery (ICA) and proximal External Carotid Artery (ECA) were evaluated. The vertebral arteries were evaluated for gross patency and flow direction. Report prepared by KERRY Mejía FINDINGS: RIGHT CAROTID ARTERIES: 1. Common Carotid Artery: No significant focal plaque formation of the right common carotid artery. Maximum Peak Systolic velocity: cm/sec: End-diastolic velocity cm/sec. 2. Carotid Bifurcation: plaque formation. Maximum Peak Systolic velocity: cm/sec: End-diastolic velocity cm/sec. 3. Internal Carotid Artery: Plaque description: 3.1. Proximal Segment: Peak systolic velocity cm/sec: End-diastolic velocity cm/sec - % stenosis 3.2. Middle Segment: Peak systolic velocity cm/sec: End-diastolic velocity cm/sec - % stenosis 3.3. Distal Segment: Peak systolic velocity cm/sec: End-diastolic velocity cm/sec - % stenosis 4. External Carotid Artery: No significant focal plaque formation. Peak systolic velocity cm/sec 5. ICA/CCA Ratio: LEFT CAROTID ARTERIES: 1. Common Carotid Artery: No significant focal plaque formation of the left common carotid artery. Maximum Peak Systolic velocity: cm/sec: End-diastolic velocity cm/sec. 2. Carotid Bifurcation: plaque formation. Maximum Peak Systolic velocity: cm/sec: End-diastolic velocity cm/sec. 3. Internal Carotid Artery: Plaque description: 3.1. Proximal Segment: Peak systolic velocity cm/sec: End-diastolic velocity cm/sec - % stenosis 3.2. Middle Segment: Peak systolic velocity cm/sec: End-diastolic velocity cm/sec - % stenosis 3.3. Distal Segment: Peak systolic velocity cm/sec: End-diastolic velocity cm/sec - % stenosis 4. External Carotid Artery: No significant focal plaque formation. Peak systolic velocity cm/sec 5. ICA/CCA Ratio: VERTEBRAL ARTERIES: 1. Right Vertebral Artery: The right vertebral artery flow direction is antegrade. 2. Left Vertebral Artery: The left vertebral artery flow direction is antegrade. OTHER FINDINGS: 1. Right Brachial Blood pressure: 100 mmHg. 2. Left Brachial Blood pressure: 90 mmHg. IMPRESSION: RIGHT: Duplex scan does not suggest hemodynamically significant stenosis of the right extracranial carotid arteries. LEFT: Duplex scan does not suggest hemodynamically significant stenosis of the left extracranial carotid arteries.
--- NOTE | 2017-10-29 13:42 | MRI ---
PROCEDURE: MRI BRAIN WITHOUT CONTRAST HISTORY: compilation clerk stroke Vs juanito stroke COMPARISON: None. TECHNIQUE: Multiplanar, multisequence MR images of the brain were obtained without intravenous contrast enhancement. FINDINGS: HEMORRHAGE: None DWI: No evidence of an acute or early subacute infarction. BRAIN PARENCHYMA: No mass effect or edema. Severe chronic microvascular disease is seen in the periventricular white matter. There are no acute findings VENTRICLES: Unremarkable. No hydrocephalus. CRANIUM: Unremarkable. ORBITS: Grossly unremarkable. PARANASAL SINUSES/MASTOIDS: Clear VASCULAR SYSTEM: Skull base flow voids intact. OTHER FINDINGS: None. IMPRESSION: Severe chronic microvascular disease in the periventricular white matter. No acute findings
[2017-10-29] MEDS ORDERED: Iodixanol 320 MG/ML 100 ML BOTTLE IV ONE (16:30)
--- NOTE | 2017-10-29 17:42 | CARD ---
APPROVED REPORT EXAM: Two-dimensional and M-mode echocardiogram with Doppler and color Doppler. Other Information Quality : [employer] : INDICATION Dizziness and Vertigo WEAKNESS, CARDI EMBOLIC PROCESS 2D DIMENSIONS IVSd0.9 (0.7-1.1cm)LVDd4.7 (3.9-5.9cm) PWd0.9 (0.7-1.1cm)LVDs4.6 (2.5-4.0cm) LVEF (%)30.0 (>50%) M-Mode DIMENSIONS Left Atrium (MM)2.97 (2.5-4.0cm)Aortic Root3.07 (2.2-3.7cm) Aortic Cusp Exc.2.17 (1.5-2.0cm) Aortic Valve AI P 1/2 [id number] Mitral Valve MV E [id number]/sE/A ratio0.0 TDI E/Lateral E'0.0E/Medial E'0.0 Tricuspid Valve TR Peak [id number]/sTR Peak [id number] LEFT VENTRICLE The Left Ventricle is moderately dilated. There is normal left ventricular wall thickness. Left ventricle systolic function is severely impaired. The Ejection Fraction is - 30%. There is global hypokinesis of the left ventricle. Severe diastolic dysfunction. Doppler flow pattern is Grade III- restrictive diastolic dysfunction. RIGHT VENTRICLE The right ventricle is normal size. The right ventricular systolic function is normal. ATRIA The left atrium is mildly dilated. The right atrium size is normal. AORTIC VALVE The aortic valve is slightly calcified but opens well. There is trace to mild aortic regurgitation. MITRAL VALVE The mitral valve is normal in structure. Mitral regurgitation is mild. TRICUSPID VALVE The tricuspid valve is normal in structure. There is mild tricuspid regurgitation. Right ventricular systolic pressure is estimated at 32 mmHg. PULMONIC VALVE The pulmonic valve is not well visualized. GREAT VESSELS The aortic root is normal in size. The IVC is normal in size and collapses >50% with inspiration. PERICARDIAL EFFUSION There is no pericardial effusion. <Conclusion> The Left Ventricle is moderately dilated. Left ventricle systolic function is severely impaired. The Ejection Fraction is - 30%. Severe diastolic dysfunction. Doppler flow pattern is Grade III- restrictive diastolic dysfunction. The aortic valve is slightly calcified but opens well. There is trace to mild aortic regurgitation. There is mild mitral and tricuspid regurgitation. Right ventricular systolic pressure is estimated at 32 mmHg. There is no pericardial effusion.
[2017-10-29] MEDS: Azithromycin 500 MG in Sodium Chloride 0.9% 250 ML IVPB SCH (18:09)
--- NOTE | 2017-10-29 18:17 | CT ---
PROCEDURE: CT Chest with contrast HISTORY: r/o THYMOMA Hyponatremia leukocytosis and weakness. COMPARISON: None. TECHNIQUE: Contiguous axial images were obtained through the chest with intravenous contrast enhancement. Sagittal and coronal reconstructions were performed. IV contrast: 100 cc Visipaque 320 Radiation dose (DLP): 581.24 mGy-cm. This CT exam was performed using one or more of the following dose reduction techniques: Automated exposure control, adjustment of the mA and/or kV according to patient size, and/or use of iterative reconstruction technique. FINDINGS: LUNGS: Interstitial lung disease, chronic. Similar findings identified in comparable lower lung bean as imaged on the CT of the abdomen and pelvis 04/18/2015. No discrete infiltrates, pulmonary nodules/ masses. Bronchiectatic changes indistinguishable from chronic interstitial lung disease. MEDIASTINUM: Unremarkable thoracic aorta. No aneurysm or dissection. Normal sized heart. Main pulmonary artery unremarkable. No vascular congestion. Right hilar adenopathy. Confluent nodular masses 2 x 3.3 cm identified. Sub carinal adenopathy also identified separate and distinct from adjacent esophagus. The more proximal esophagus is patulous. No discrete esophageal mass identified distal to this. PLEURA: No pleural fluid. No pneumothorax. BONES: No fracture. No destructive lesion. Multilevel degenerative changes, marginal and non marginal osteophyte formation. UPPER ABDOMEN: Hypervascular mass right hepatic lobe 1.6 cm. This represents a nonspecific finding. No correlate on the prior CT of the abdomen 04/18/2015. OTHER FINDINGS: None. IMPRESSION: 1. No evidence of thymoma/anterior mediastinal mass. 2. Right hilar mass/ adenopathy. Ill-defined subcarinal masses separate from the esophagus also identified. 3. Chronic interstitial lung disease/ bronchiectasis. No suspicious/discrete pulmonary nodules identified. 4. Hypervascular mass right hepatic lobe.
--- NOTE | 2017-10-29 18:46 | CP.PCM.PN ---
Subjective - Date & Time of Evaluation Date of Evaluation: 10/29/17 Time of Evaluation: 18:46 Objective - Vital Signs/Intake and Output Vital Signs (last 24 hours): Temp Pulse Resp BP Pulse Ox 98.5 F 102 H 20 113/72 95 10/29/17 15:00 10/29/17 15:00 10/29/17 15:00 10/29/17 15:00 10/29/17 15:00 Intake and Output: 10/29/17 10/29/17 06:59 18:59 Intake Total 2070 880 Output Total 200 Balance 1870 880 - Medications Medications: Current Medications Aspirin (Ecotrin) 81 mg PO DAILY [facility] Last Admin: 10/29/17 12:02 Dose: 81 mg Clopidogrel Bisulfate (Plavix) 75 mg PO DAILY [facility] Last Admin: 10/29/17 12:02 Dose: 75 mg Gabapentin (Neurontin) 300 mg PO DAILY [facility] Last Admin: 10/29/17 12:02 Dose: 300 mg Heparin Sodium (Porcine) (Heparin) 5,000 units SC Q12 [facility] Last Admin: 10/29/17 12:02 Dose: 5,000 units Ceftriaxone Sodium 1 gm/ (Sodium Chloride) 100 mls @ 100 mls/hr IVPB DAILY [facility] Last Admin: 10/29/17 12:01 Dose: 100 mls/hr Sodium Chloride (Sodium Chloride 0.9%) 1,000 mls @ 80 mls/hr IV .[id number] [facility] Last Admin: 10/29/17 05:40 Dose: Not Given Azithromycin 500 mg/ Sodium (Chloride) 250 mls @ 250 mls/hr IVPB Q24H [facility] Last Admin: 10/29/17 18:09 Dose: 250 mls/hr Insulin Detemir (Levemir) 20 unit SC BID [facility] Last Admin: 10/29/17 18:08 Dose: 20 unit Losartan Potassium (Cozaar) 25 mg PO DAILY [facility] Last Admin: 10/29/17 12:02 Dose: 25 mg Metformin HCl (Glucophage) 500 mg PO BID [facility] Last Admin: 10/29/17 12:03 Dose: Not Given Rosuvastatin Calcium (Crestor) 5 mg PO [facility] Tramadol HCl (Ultram) 50 mg PO TID PRN PRN Reason: Pain, moderate (4-7) Last Admin: 02/01/18 12:27 Dose: 50 mg - Labs Labs: 10/29/17 06:31 10/29/17 06:31 PT 13.8 SECONDS (9.7-12.2) H 10/27/17 14:05 INR 1.2 10/27/17 14:05 APTT 30 SECONDS (21-34) 10/27/17 14:05
--- NOTE | 2017-10-29 19:09 | CP.PCM.PN ---
Subjective - Date & Time of Evaluation Date of Evaluation: 10/29/17 Time of Evaluation: 08:00 - Subjective Subjective: neuro fin=dings noted Objective - Vital Signs/Intake and Output Vital Signs (last 24 hours): Temp Pulse Resp BP Pulse Ox 98.5 F 102 H 20 113/72 95 10/29/17 15:00 10/29/17 15:00 10/29/17 15:00 10/29/17 15:00 10/29/17 15:00 Intake and Output: 10/29/17 10/30/17 18:59 06:59 Intake Total 880 Balance 880 - Medications Medications: Current Medications Aspirin (Ecotrin) 81 mg PO DAILY [facility] Last Admin: 10/29/17 12:02 Dose: 81 mg Clopidogrel Bisulfate (Plavix) 75 mg PO DAILY [facility] Last Admin: 10/29/17 12:02 Dose: 75 mg Gabapentin (Neurontin) 300 mg PO DAILY [facility] Last Admin: 10/29/17 12:02 Dose: 300 mg Heparin Sodium (Porcine) (Heparin) 5,000 units SC Q12 [facility] Last Admin: 10/29/17 12:02 Dose: 5,000 units Ceftriaxone Sodium 1 gm/ (Sodium Chloride) 100 mls @ 100 mls/hr IVPB DAILY [facility] Last Admin: 10/29/17 12:01 Dose: 100 mls/hr Sodium Chloride (Sodium Chloride 0.9%) 1,000 mls @ 80 mls/hr IV .[id number] [facility] Last Admin: 10/29/17 05:40 Dose: Not Given Azithromycin 500 mg/ Sodium (Chloride) 250 mls @ 250 mls/hr IVPB Q24H [facility] Last Admin: 10/29/17 18:09 Dose: 250 mls/hr Insulin Detemir (Levemir) 20 unit SC BID [facility] Last Admin: 10/29/17 18:08 Dose: 20 unit Losartan Potassium (Cozaar) 25 mg PO DAILY [facility] Last Admin: 10/29/17 12:02 Dose: 25 mg Metformin HCl (Glucophage) 500 mg PO BID [facility] Last Admin: 10/29/17 12:03 Dose: Not Given Rosuvastatin Calcium (Crestor) 5 mg PO [facility] Tramadol HCl (Ultram) 50 mg PO TID PRN PRN Reason: Pain, moderate (4-7) Last Admin: 10/29/17 12:27 Dose: 50 mg - Labs Labs: 10/29/17 06:31 10/29/17 06:31 PT 13.8 SECONDS (9.7-12.2) H 10/27/17 14:05 INR 1.2 10/27/17 14:05 APTT 30 SECONDS (21-34) 10/27/17 14:05 - Constitutional Appears: Chronically Ill - Head Exam Head Exam: NORMOCEPHALIC - Eye Exam Eye Exam: absent: Scleral icterus - ENT Exam ENT Exam: Normal External Ear Exam - Neck Exam Neck Exam: absent: Lymphadenopathy - Respiratory Exam Respiratory Exam: Decreased Breath Sounds - Cardiovascular Exam Cardiovascular Exam: REGULAR RHYTHM - GI/Abdominal Exam GI & Abdominal Exam: Distended - Rectal Exam Rectal Exam: Deferred - Exam Exam: NORMAL INSPECTION Assessment and Plan (1) Hyponatremia Status: Acute (2) Leukocytosis Status: Acute (3) Arthritis Status: Acute (4) Back contusion Status: Acute - Assessment and Plan (Free Text) Assessment: PTOSIS WITH PROXIMAL MUSCLE WEAKNESS LEGS > ARMS R/O PARASAGITTAL PROCESS STROKE /MASS NMJ DISEASE MYASTHENIA GRAVIS Vs PARANEOPLASTIC PROCESS SEVERE SENSORY MOTOR NEUROPATHY MRI/CHEST CT/BLOOD WORK UP
[2017-10-30] MEDS: Sodium Chloride 0.9% 1,000 ML IV SCH ×3 (04:03→16:10)
--- NOTE | 2017-10-30 04:10 | CARD ---
APPROVED REPORT EKG Measurement Heart [id number] <Conclusion> Sinus tachycardia Inferior infarct, age undetermined Abnormal ECG
--- NOTE | 2017-10-30 07:33 | CON ---
DATE: 10/29/2017 NEUROLOGIC INITIAL CONSULTATION ATTENDING PHYSICIAN: Jadiel Kumar MD LOCATION: The patient's room number 353, bed B. REASON FOR CONSULTATION: Leg weakness. CHIEF COMPLAINT: The patient was brought into [facility] with a history of subacute process of lower extremity weakness. No history of fall as per the documentation. No history of loss of consciousness. No history of involuntary movements. From neurological point of view, I was called in to evaluate him for further management. HISTORY OF PRESENT ILLNESS: Mr. Ravin Underwood is a 76-year-old, thinly built, right-handed male, in his usual state of health, brought into [facility] with a history of less than a week history of lower extremity weakness, inability to walk himself and tendency to fall on the ground. No history of fall as per the documentation. However, the patient's knee shows that he has a bruise on his left knee. No history of involuntary movements. No history of bowel and bladder incontinence. He denies shortness of breath. He denies double vision. He denies headache. He denies visual or bulbar dysfunction. PAST MEDICAL HISTORY: Xey-mbckkek-vpbtzuwzh diabetes mellitus, hypertension, dyslipidemia, stroke in the past, and arthritis. PERSONAL HISTORY: He is a smoker socially and social drinker. ALLERGIES: NO KNOWN ALLERGIES. REVIEW OF SYSTEMS: A 12-point system being reviewed. From neuro, new weakness of his lower extremities. MEDICATIONS: Azithromycin, ceftriaxone, losartan, aspirin, Glucophage, Levemir, Neurontin, Plavix, tramadol. PHYSICAL EXAMINATION: VITAL SIGNS: Blood pressure 122/63, mean arterial pressure of 82, respiratory rate 16, temperature 99.6, and pulse rate 100. GENERAL: The patient is awake. NECK: Supple. No carotid bruits. HEART: Sounds regular. CHEST: Fair air entry. EXTREMITIES: Distal muscle atrophy. Leg is not externally rotated. NEUROLOGIC EXAMINATION: Mental status examination: He is awake, alert and oriented to person, place and time. Speech is dysarthric, bulbar speech. Cranial nerve examination, visual field intact. Pupils reactive to light. Extraocular movement decreased in all direction. The patient has significant ptosis, Becca lid lag test is positive. No facial asymmetry. Facial sensation is normal. Good gag. MOTOR EXAMINATION: He could not able to lift his head against the resistance up from the bed. He could not able to lift both lower extremities against the gravity. On outstretched hand with eyes closed, mild sensory tremor noted. Muscle strength, there is significant weakness in the leg more than his arms proximally noted. Deep tendon reflexes are absent. No fasciculations were noted at rest. Plantars are upgoing on his left side, right side was downgoing. SENSORY EXAMINATION: No cortical sensory loss; however, significant position sense affected on his both lower extremities. He could not able to appreciate where that big toe is moving. COORDINATION: Nwdaae-[id number]-rnfdhs test is intact. GAIT: Deferred at this time. WORKUP: X-ray of the pelvis and knees have been interviewed. No acute pathology is noted. Blood workup, WBC 15.3, hemoglobin 12.2, hematocrit 35.0, platelets 172. Sodium 123, potassium 4.1, chloride 94, bicarbonate 22, GFR more than 60, glucose 266, alkaline phosphatase 141. Urine osmolality 458, urine random sodium is 150. CONCLUSION: 1. Mr. 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 2. Considering his risk factors, parasagittal region ischemic process such as anterior cerebral artery ischemic process should be ruled out. 3. 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 The patient is also suffering from hypertension, diabetes mellitus with leukocytosis. RECOMMENDATIONS: 1. MRI of the brain to rule out stroke. 2. CT of the chest to rule out thymoma. 3. Carotid Doppler, echocardiogram, EEG and serology workup for the above possible diagnosis. 5. DVT prophylaxis. 6. Getting out of the bed and diabetic control. Continue anti-platelets for now. Appropriate antibiotic, avoid all drugs affecting neuromuscular junctions. The patient's condition has been well discussed with him. The patient also should be evaluated by licensed insurance sales agent and in the meantime, I would like to do pulmonary function test and vital capacity at present. The patient will be followed closely with you. Jose Serna MD [facility] # [id number]
[2017-10-30] MEDS: Insulin Detemir 100 units/ml Vial (Levemir) SC SCH ×2 (09:52→18:08)
[2017-10-30 11:55] LABS: HEMOGLOBIN 11.7 g/dL (12.0-18.0); MEAN CORPUSCULAR HEMOGLOBIN 32.4 pg (27.0-31.0); MEAN CORPUSCULAR HGB CONC 34.8 g/dL (33.0-37.0); MEAN PLATELET VOLUME 9.8 fL (7.2-11.7); RBC 3.63 Mil/uL (4.40-5.90); RED CELL DISTRIBUTION WIDTH 12.1 % (11.5-14.5); WHITE BLOOD COUNT 14.6 K/uL (4.8-10.8)
[2017-10-30 12:16] LABS: BLOOD UREA NITROGEN 16 mg/dL (9-20); CALCIUM 8.4 mg/dl (8.6-10.4); GFR AFRICAN-AMERICAN > 60; GFR NON-AFRICAN AMERICAN > 60
--- NOTE | 2017-10-30 12:38 | PN ---
DATE: 10/30/2017 NEUROLOGICAL PROBLEM: Neuromuscular junctional disease, myasthenia gravis, this is myasthenic syndrome (Lambert-Eaton Syndrome.) PHYSICAL EXAMINATION: VITAL SIGNS: Blood pressure 118/63, mean arterial pressure of 81, respiratory rate 20, pulse rate 108. NEUROLOGIC: The patient is lying down comfortably, still droopy eye lid; however, much better than yesterday morning. Significant bulbar dysfunction and leg weakness, more than his arm weakness. Other examinations are normal. The patient did have MRI of the brain, which showed periventricular ischemic changes without any new ischemic process. Mild atrophy noted. CT of the chest showed hilar nodules without thymoma. Serology workup is still pending. Requested pulmonary function test and vital capacity were not done. This is more than 24 hours period. Personally, I called respiratory therapist and addressed this issues, which can be done ASP. Pulmonary to follow his lung nodule and further workup related to this problem. The patient also requested to have paraneoplastic syndrome workup. Jose Serna MD
--- NOTE | 2017-10-30 15:39 | CP.PCM.PN ---
Subjective - Date & Time of Evaluation Date of Evaluation: 10/30/17 Time of Evaluation: 15:39 Objective - Vital Signs/Intake and Output Vital Signs (last 24 hours): Temp Pulse Resp BP Pulse Ox 97.8 F 109 H 20 117/73 95 10/30/17 08:19 10/30/17 08:19 10/30/17 08:19 10/30/17 08:19 10/30/17 08:19 Intake and Output: 10/30/17 10/30/17 06:59 18:59 Intake Total 1980 Output Total 550 Balance 1430 - Medications Medications: Current Medications Aspirin (Ecotrin) 81 mg PO DAILY [facility] Last Admin: 10/30/17 09:50 Dose: 81 mg Clopidogrel Bisulfate (Plavix) 75 mg PO DAILY [facility] Last Admin: 10/30/17 09:49 Dose: 75 mg Gabapentin (Neurontin) 300 mg PO DAILY [facility] Last Admin: 10/30/17 09:49 Dose: 300 mg Heparin Sodium (Porcine) (Heparin) 5,000 units SC Q12 [facility] Last Admin: 10/30/17 09:50 Dose: 5,000 units Ceftriaxone Sodium 1 gm/ (Sodium Chloride) 100 mls @ 100 mls/hr IVPB DAILY [facility] Last Admin: 10/30/17 09:59 Dose: 100 mls/hr Sodium Chloride (Sodium Chloride 0.9%) 1,000 mls @ 80 mls/hr IV .[id number] [facility] Last Admin: 10/30/17 04:03 Dose: 80 mls/hr Azithromycin 500 mg/ Sodium (Chloride) 250 mls @ 250 mls/hr IVPB Q24H [facility] Last Admin: 10/29/17 18:09 Dose: 250 mls/hr Insulin Detemir (Levemir) 20 unit SC BID [facility] Last Admin: 10/30/17 09:52 Dose: Not Given Losartan Potassium (Cozaar) 25 mg PO DAILY [facility] Last Admin: 10/30/17 09:50 Dose: 25 mg Metformin HCl (Glucophage) 500 mg PO BID [facility] Last Admin: 10/29/17 12:03 Dose: Not Given Rosuvastatin Calcium (Crestor) 5 mg PO HS [facility] Last Admin: 10/29/17 22:20 Dose: 5 mg - Labs Labs: 10/30/17 11:46 10/30/17 11:46 PT 13.8 SECONDS (9.7-12.2) H 10/27/17 14:05 INR 1.2 10/27/17 14:05 APTT 30 SECONDS (21-34) 10/27/17 14:05
[2017-10-30 16:14] LABS: ALDOLASE 4.5 U/L (<=8.1)
[2017-10-30] MEDS: Azithromycin 500 MG in Sodium Chloride 0.9% 250 ML IVPB SCH (18:14)
--- NOTE | 2017-10-30 19:26 | CP.PCM.PN ---
Subjective - Date & Time of Evaluation Date of Evaluation: 10/30/17 Time of Evaluation: 07:00 - Subjective Subjective: wbc trending down work up in progress for neuromuscular disorder r/o Myasthenia no new Pos cultures Objective - Vital Signs/Intake and Output Vital Signs (last 24 hours): Temp Pulse Resp BP Pulse Ox 98.3 F 123 H 20 121/73 95 10/30/17 17:23 10/30/17 17:23 10/30/17 17:23 10/30/17 17:23 10/30/17 17:23 Intake and Output: 10/30/17 10/31/17 18:59 06:59 Intake Total 940 Balance 940 - Medications Medications: Current Medications Acetaminophen (Tylenol 325mg Tab) 650 mg PO Q6 PRN PRN Reason: Pain, moderate (4-7) Aspirin (Ecotrin) 81 mg PO DAILY [facility] Last Admin: 10/30/17 09:50 Dose: 81 mg Clopidogrel Bisulfate (Plavix) 75 mg PO DAILY [facility] Last Admin: 10/30/17 09:49 Dose: 75 mg Gabapentin (Neurontin) 300 mg PO DAILY [facility] Last Admin: 10/30/17 09:49 Dose: 300 mg Heparin Sodium (Porcine) (Heparin) 5,000 units SC Q12 [facility] Last Admin: 10/30/17 09:50 Dose: 5,000 units Ceftriaxone Sodium 1 gm/ (Sodium Chloride) 100 mls @ 100 mls/hr IVPB DAILY [facility] Last Admin: 10/30/17 09:59 Dose: 100 mls/hr Sodium Chloride (Sodium Chloride 0.9%) 1,000 mls @ 80 mls/hr IV .[id number] [facility] Last Admin: 10/30/17 16:10 Dose: 80 mls/hr Azithromycin 500 mg/ Sodium (Chloride) 250 mls @ 250 mls/hr IVPB Q24H [facility] Last Admin: 10/30/17 18:14 Dose: 250 mls/hr Insulin Detemir (Levemir) 20 unit SC BID [facility] Last Admin: 10/30/17 18:08 Dose: 20 unit Losartan Potassium (Cozaar) 25 mg PO DAILY [facility] Last Admin: 10/30/17 09:50 Dose: 25 mg Metformin HCl (Glucophage) 500 mg PO BID [facility] Last Admin: 10/29/17 12:03 Dose: Not Given Rosuvastatin Calcium (Crestor) 5 mg PO HS [facility] Last Admin: 10/29/17 22:20 Dose: 5 mg - Labs Labs: 10/30/17 11:46 10/30/17 11:46 PT 13.8 SECONDS (9.7-12.2) H 10/27/17 14:05 INR 1.2 10/27/17 14:05 APTT 30 SECONDS (21-34) 10/27/17 14:05 - Constitutional Appears: Non-toxic, Chronically Ill - Eye Exam Eye Exam: Normal appearance - ENT Exam ENT Exam: Mucous Membranes Dry - Neck Exam Neck Exam: absent: Lymphadenopathy - Respiratory Exam Respiratory Exam: Decreased Breath Sounds - Cardiovascular Exam Cardiovascular Exam: REGULAR RHYTHM - GI/Abdominal Exam GI & Abdominal Exam: Distended Assessment and Plan (1) Hyponatremia Status: Acute (2) Leukocytosis Status: Acute (3) Arthritis Status: Acute (4) Back contusion Status: Acute - Assessment and Plan (Free Text) Assessment: will send for HTLV I and II consider heme onc eval
[2017-10-31] MEDS: Sodium Chloride 0.9% 1,000 ML IV SCH (05:12)
[2017-10-31 08:42] LABS: HEPATITIS B SURFACE AG Negative (NEGATIVE)
[2017-10-31 08:49] LABS: HEPATITIS A IGM NEGATIVE (NEGATIVE); HEPATITIS B CORE AB NEGATIVE (NEGATIVE)
[2017-10-31 08:59] LABS: HEPATITIS C ANTIBODY NEGATIVE (NEGATIVE)
[2017-10-31] MEDS: cefTRIAXone IV 1 gm in Dextros 50 ML IVPB SCH (10:15)
[2017-10-31] MEDS: Insulin Detemir 100 units/ml Vial (Levemir) SC SCH ×2 (10:48→17:47)
--- NOTE | 2017-10-31 17:49 | CP.PCM.PN ---
Subjective - Date & Time of Evaluation Date of Evaluation: 10/31/17 Time of Evaluation: 17:49 Objective - Vital Signs/Intake and Output Vital Signs (last 24 hours): Temp Pulse Resp BP Pulse Ox 98.8 F 109 H 20 116/69 97 10/31/17 15:30 10/31/17 15:30 10/31/17 15:30 10/31/17 15:30 10/31/17 15:30 Intake and Output: 10/31/17 10/31/17 06:59 18:59 Intake Total 1100 1770 Output Total 0 Balance 1100 1770 - Medications Medications: Current Medications Acetaminophen (Tylenol 325mg Tab) 650 mg PO Q6 PRN PRN Reason: Pain, moderate (4-7) Aspirin (Ecotrin) 81 mg PO DAILY [facility] Last Admin: 10/31/17 10:50 Dose: 81 mg Azithromycin (Zithromax) 500 mg PO Q24H [facility] Clopidogrel Bisulfate (Plavix) 75 mg PO DAILY [facility] Last Admin: 10/31/17 10:48 Dose: 75 mg Gabapentin (Neurontin) 300 mg PO DAILY [facility] Last Admin: 10/31/17 10:48 Dose: 300 mg Ceftriaxone Sodium (Rocephin Iv 1 Gm Duplex) 50 mls @ 100 mls/hr IVPB DAILY [facility] Last Admin: 10/31/17 10:15 Dose: 100 mls/hr Insulin Detemir (Levemir) 20 unit SC BID [facility] Last Admin: 10/31/17 17:47 Dose: 20 unit Losartan Potassium (Cozaar) 25 mg PO DAILY [facility] Last Admin: 10/31/17 10:48 Dose: 25 mg Metformin HCl (Glucophage) 500 mg PO BID [facility] Last Admin: 10/31/17 17:43 Dose: Not Given Rosuvastatin Calcium (Crestor) 5 mg PO HS [facility] Last Admin: 10/30/17 21:42 Dose: 5 mg - Labs Labs: 10/30/17 11:46 10/30/17 11:46 PT 13.8 SECONDS (9.7-12.2) H 10/27/17 14:05 INR 1.2 10/27/17 14:05 APTT 30 SECONDS (21-34) 10/27/17 14:05
[2017-10-31 18:07] LABS: AChR BLOCKING ANTIBODIES <15 % inhibit (<15)
[2017-11-01] MEDS: Sodium Chloride 0.9% 1,000 ML IV SCH ×2 (02:29→16:49)
[2017-11-01] MEDS: cefTRIAXone IV 1 gm in Dextros 50 ML IVPB SCH (10:37)
[2017-11-01] MEDS: Insulin Detemir 100 units/ml Vial (Levemir) SC SCH ×2 (10:41→18:40)
--- NOTE | 2017-11-01 14:25 | CP.PCM.PN ---
Subjective - Date & Time of Evaluation Date of Evaluation: 11/01/17 Time of Evaluation: 14:24 Objective - Vital Signs/Intake and Output Vital Signs (last 24 hours): Temp Pulse Resp BP Pulse Ox 98.4 F 91 H 20 122/71 97 11/01/17 07:34 11/01/17 07:34 11/01/17 07:34 11/01/17 07:34 11/01/17 07:34 Intake and Output: 11/01/17 11/01/17 06:59 18:59 Intake Total 1630 Balance 1630 - Medications Medications: Current Medications Acetaminophen (Tylenol 325mg Tab) 650 mg PO Q6 PRN PRN Reason: Pain, moderate (4-7) Last Admin: 11/01/17 02:32 Dose: 650 mg Aspirin (Ecotrin) 81 mg PO DAILY [facility] Last Admin: 11/01/17 10:36 Dose: 81 mg Azithromycin (Zithromax) 500 mg PO Q24H [facility] Last Admin: 10/31/17 18:06 Dose: 500 mg Clopidogrel Bisulfate (Plavix) 75 mg PO DAILY [facility] Last Admin: 11/01/17 10:36 Dose: 75 mg Gabapentin (Neurontin) 300 mg PO DAILY [facility] Last Admin: 11/01/17 10:36 Dose: 300 mg Ceftriaxone Sodium (Rocephin Iv 1 Gm Duplex) 50 mls @ 100 mls/hr IVPB DAILY [facility] Last Admin: 11/01/17 10:37 Dose: 100 mls/hr Sodium Chloride (Sodium Chloride 0.9%) 1,000 mls @ 80 mls/hr IV .[id number] [facility] Last Admin: 11/01/17 02:29 Dose: 80 mls/hr Insulin Detemir (Levemir) 20 unit SC BID [facility] Last Admin: 11/01/17 10:41 Dose: 20 unit Losartan Potassium (Cozaar) 25 mg PO DAILY [facility] Last Admin: 11/01/17 10:36 Dose: 25 mg Metformin HCl (Glucophage) 500 mg PO BID [facility] Last Admin: 11/01/17 10:36 Dose: 500 mg Rosuvastatin Calcium (Crestor) 5 mg PO HS [facility] Last Admin: 10/31/17 21:35 Dose: 5 mg - Labs Labs: 10/30/17 11:46 10/30/17 11:46 PT 13.8 SECONDS (9.7-12.2) H 10/27/17 14:05 INR 1.2 10/27/17 14:05 APTT 30 SECONDS (21-34) 10/27/17 14:05
--- NOTE | 2017-11-01 16:23 | CP.PCM.PN ---
Subjective - Date & Time of Evaluation Date of Evaluation: 11/01/17 Time of Evaluation: 08:00 - Subjective Subjective: afebrile wbc trending up neuro work up in progress c/o weakness Objective - Vital Signs/Intake and Output Vital Signs (last 24 hours): Temp Pulse Resp BP Pulse Ox 98.4 F 91 H 20 122/71 97 11/01/17 07:34 11/01/17 07:34 11/01/17 07:34 11/01/17 07:34 11/01/17 07:34 Intake and Output: 11/01/17 11/01/17 06:59 18:59 Intake Total 1630 880 Output Total 0 Balance 1630 880 - Medications Medications: Current Medications Acetaminophen (Tylenol 325mg Tab) 650 mg PO Q6 PRN PRN Reason: Pain, moderate (4-7) Last Admin: 11/01/17 02:32 Dose: 650 mg Aspirin (Ecotrin) 81 mg PO DAILY [facility] Last Admin: 11/01/17 10:36 Dose: 81 mg Azithromycin (Zithromax) 500 mg PO Q24H [facility] Last Admin: 10/31/17 18:06 Dose: 500 mg Clopidogrel Bisulfate (Plavix) 75 mg PO DAILY [facility] Last Admin: 11/01/17 10:36 Dose: 75 mg Gabapentin (Neurontin) 300 mg PO DAILY [facility] Last Admin: 11/01/17 10:36 Dose: 300 mg Ceftriaxone Sodium (Rocephin Iv 1 Gm Duplex) 50 mls @ 100 mls/hr IVPB DAILY [facility] Last Admin: 11/01/17 10:37 Dose: 100 mls/hr Sodium Chloride (Sodium Chloride 0.9%) 1,000 mls @ 80 mls/hr IV .[id number] [facility] Last Admin: 11/01/17 02:29 Dose: 80 mls/hr Insulin Detemir (Levemir) 20 unit SC BID [facility] Last Admin: 11/01/17 10:41 Dose: 20 unit Losartan Potassium (Cozaar) 25 mg PO DAILY [facility] Last Admin: 11/01/17 10:36 Dose: 25 mg Metformin HCl (Glucophage) 500 mg PO BID [facility] Last Admin: 11/01/17 10:36 Dose: 500 mg Rosuvastatin Calcium (Crestor) 5 mg PO HS [facility] Last Admin: 10/31/17 21:35 Dose: 5 mg - Labs Labs: 10/30/17 11:46 10/30/17 11:46 PT 13.8 SECONDS (9.7-12.2) H 10/27/17 14:05 INR 1.2 10/27/17 14:05 APTT 30 SECONDS (21-34) 10/27/17 14:05 - Constitutional Appears: Non-toxic, Chronically Ill - Head Exam Head Exam: NORMOCEPHALIC - Eye Exam Eye Exam: PERRL - ENT Exam ENT Exam: Mucous Membranes Dry - Neck Exam Neck Exam: absent: Lymphadenopathy - Respiratory Exam Respiratory Exam: Decreased Breath Sounds - Cardiovascular Exam Cardiovascular Exam: REGULAR RHYTHM - GI/Abdominal Exam GI & Abdominal Exam: Distended, Soft Assessment and Plan (1) Hyponatremia Status: Acute (2) Leukocytosis Status: Acute (3) Arthritis Status: Acute (4) Back contusion Status: Acute
[2017-11-02] MEDS: Sodium Chloride 0.9% 1,000 ML IV SCH ×3 (05:49→15:40)
--- NOTE | 2017-11-02 10:34 | PN ---
DATE: 11/02/2017 TIME OF EVALUATION: 7:20 a.m. 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 PHYSICAL EXAMINATION: VITAL SIGNS: Blood pressure 128/72, mean arterial pressure of 90, respiratory rate 20, temperature 98 degrees Fahrenheit, with a pulse rate of 109. NEUROLOGIC: The patient is awake, alert and oriented to person, place and time. Speech is intact. Moves all four extremities; however, leg weakness is profound compared with arm movement. Persistent proximal weakness noted. Ptosis as well as pharyngeal voice again noted. Neck flexion is 4/5. Rest of the examination is unchanged. The patient has been worked up for abnormal lung problem. His blood work seems to be normal. The patient's neuromuscular disease workup is still pending. Continue the present management. The patient will be followed closely with you. Jose Serna MD
[2017-11-02] MEDS: cefTRIAXone IV 1 gm in Dextros 50 ML IVPB SCH (10:58)
[2017-11-02] MEDS: Insulin Detemir 100 units/ml Vial (Levemir) SC SCH ×2 (11:05→17:17)
[2017-11-02 12:04] LABS: BASO # 0.1 K/uL (0.0-0.2); BASO % 0.6 % (0.0-2.0); EOS # 0.4 K/uL (0.0-0.7); HEMOGLOBIN 11.1 g/dL (12.0-18.0); LYMPH % 5.6 % (20.0-40.0); MEAN CELL VOLUME 93.1 fL (80.0-94.0); MEAN CORPUSCULAR HEMOGLOBIN 32.3 pg (27.0-31.0); MEAN CORPUSCULAR HGB CONC 34.7 g/dL (33.0-37.0); MEAN PLATELET VOLUME 10.6 fL (7.2-11.7); MONO # 1.1 K/uL (0.0-0.8); NEUT # 15.4 K/uL (1.8-7.0); NEUT % 85.8 % (50.0-75.0); PLATELET COUNT 202 K/uL (130-400); RBC 3.45 Mil/uL (4.40-5.90); RED CELL DISTRIBUTION WIDTH 12.4 % (11.5-14.5); WHITE BLOOD COUNT 17.9 K/uL (4.8-10.8)
[2017-11-02 12:36] LABS: BLOOD UREA NITROGEN 16 mg/dL (9-20); CALCIUM 8.1 mg/dl (8.6-10.4); GFR AFRICAN-AMERICAN > 60; GFR NON-AFRICAN AMERICAN > 60
[2017-11-02 12:54] LABS: BANDS 1 % (0-2); EOSINOPHIL 1 % (0-4); LYMPHOCYTE 6 % (20-40); MONOCYTE 3 % (0-10); NEUTROPHIL 89 % (50-75); TOTAL CELLS COUNTED 100
[2017-11-02 12:55] LABS: PLATELET ESTIMATE NORMAL (NORMAL)
--- NOTE | 2017-11-02 13:45 | EEG ---
DATE: 10/29/2017 This is a 16-channel electroencephalogram of awake and drowsy adult. During the study, photic stimulation was performed. Hyperventilation was not performed. The resting electroencephalogram consists of 30 to 40 microvolt diffuse 6 to 7 Hz theta activities noted. Intermittent movement artifact contaminated the background rhythm. Later, these activities further slowed down from 3 to 5 Hz delta mixed with theta activities seen consistent with early drowsiness. The photic stimulation did not evoke driving response noted at 2 to 20 Hz. IMPRESSION: This is an abnormal electroencephalogram because of the persistent slowing throughout the record suggestive of bilateral cerebral dysfunction. This is probably secondary to metabolic, vascular, or degenerative process. Please correlate the findings with the neurological and radiological studies. Jose Serna MD [facility] # [id number]
[2017-11-02 15:05] LABS: HTLV-I-II AB W/REFL CONF Nonreactive (Nonreactive)
--- NOTE | 2017-11-02 19:13 | CP.PCM.PN ---
Subjective - Date & Time of Evaluation Date of Evaluation: 11/02/17 Time of Evaluation: 07:40 - Subjective Subjective: clinically same Objective - Vital Signs/Intake and Output Vital Signs (last 24 hours): Temp Pulse Resp BP Pulse Ox 98 F 94 H 20 98/58 L 97 11/02/17 15:00 11/02/17 15:00 11/02/17 15:00 11/02/17 15:00 11/02/17 15:00 Intake and Output: 11/02/17 11/03/17 18:59 06:59 Intake Total 1720 Output Total 1 Balance 1719 - Medications Medications: Current Medications Acetaminophen (Tylenol 325mg Tab) 650 mg PO Q6 PRN PRN Reason: Pain, moderate (4-7) Last Admin: 11/02/17 08:59 Dose: 650 mg Aspirin (Ecotrin) 81 mg PO DAILY [facility] Last Admin: 11/02/17 11:05 Dose: 81 mg Azithromycin (Zithromax) 500 mg PO Q24H [facility] Last Admin: 11/02/17 17:16 Dose: 500 mg Clopidogrel Bisulfate (Plavix) 75 mg PO DAILY [facility] Last Admin: 11/02/17 11:05 Dose: 75 mg Gabapentin (Neurontin) 300 mg PO DAILY [facility] Last Admin: 11/02/17 11:05 Dose: 300 mg Ceftriaxone Sodium (Rocephin Iv 1 Gm Duplex) 50 mls @ 100 mls/hr IVPB DAILY [facility] Last Admin: 11/02/17 10:58 Dose: 100 mls/hr Sodium Chloride (Sodium Chloride 0.9%) 1,000 mls @ 80 mls/hr IV .[id number] [facility] Last Admin: 11/02/17 05:52 Dose: Not Given Insulin Detemir (Levemir) 20 unit SC BID [facility] Last Admin: 11/02/17 17:17 Dose: 20 unit Losartan Potassium (Cozaar) 25 mg PO DAILY [facility] Last Admin: 11/02/17 11:05 Dose: 25 mg Metformin HCl (Glucophage) 500 mg PO BID [facility] Last Admin: 11/02/17 17:17 Dose: 500 mg Rosuvastatin Calcium (Crestor) 5 mg PO HS [facility] Last Admin: 11/01/17 21:56 Dose: 5 mg - Labs Labs: 11/02/17 11:37 11/02/17 11:37 PT 13.8 SECONDS (9.7-12.2) H 10/27/17 14:05 INR 1.2 10/27/17 14:05 APTT 30 SECONDS (21-34) 10/27/17 14:05 - Constitutional Appears: Well - Head Exam Head Exam: ATRAUMATIC, NORMAL INSPECTION, NORMOCEPHALIC - Eye Exam Eye Exam: EOMI, Normal appearance, PERRL Pupil Exam: NORMAL ACCOMODATION, PERRL - ENT Exam ENT Exam: Mucous Membranes Moist, Normal Exam - Neck Exam Neck Exam: Full ROM, Normal Inspection. absent: Lymphadenopathy - Respiratory Exam Respiratory Exam: Decreased Breath Sounds - Cardiovascular Exam Cardiovascular Exam: +S1, +S2 - GI/Abdominal Exam GI & Abdominal Exam: Soft, Diminished Bowel Sounds - Rectal Exam Rectal Exam: Deferred
[2017-11-03] MEDS: Sodium Chloride 0.9% 1,000 ML IV SCH (04:00)
--- NOTE | 2017-11-03 08:50 | PN ---
TIME OF EVALUATION: 7:10 a.m. 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 PHYSICAL EXAMINATION: VITAL SIGNS: Blood pressure 121/71, mean arterial pressure of 87, respiratory rate 16, temperature afebrile. NEUROLOGIC: The patient is still sleepy, arousable, moves all four extremities, still complaining of lower extremity weakness. Ptosis is still present. Extraocular movement decreased in all directions. No subjective as well as objective double vision. His workup for neuromuscular junctional disease is still pending, only once showed negative which is blocking antibodies. The patient will be followed the recommended testing. 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 The patient should be get out of the bed on physical therapy. If medically cleared, the patient can be discharged and they should have been follow up with me as an outpatient for his recommended workup. Jose Serna MD
[2017-11-03] MEDS: Insulin Detemir 100 units/ml Vial (Levemir) SC SCH (10:21)
[2017-11-03] MEDS: cefTRIAXone IV 1 gm in Dextros 50 ML IVPB SCH (10:42)
[2017-11-03 11:31] LABS: BASO # 0.1 K/uL (0.0-0.2); BASO % 0.8 % (0.0-2.0); EOS # 0.6 K/uL (0.0-0.7); LYMPH # 0.9 K/uL (1.0-4.3); LYMPH % 7.5 % (20.0-40.0); MEAN CORPUSCULAR HEMOGLOBIN 31.3 pg (27.0-31.0); MEAN CORPUSCULAR HGB CONC 33.3 g/dL (33.0-37.0); MEAN PLATELET VOLUME 10.2 fL (7.2-11.7); MONO # 0.7 K/uL (0.0-0.8); MONO % 5.8 % (0.0-10.0); NEUT # 10.2 K/uL (1.8-7.0); NEUT % 80.9 % (50.0-75.0); PLATELET COUNT 201 K/uL (130-400); RBC 3.52 Mil/uL (4.40-5.90); RED CELL DISTRIBUTION WIDTH 12.9 % (11.5-14.5); WHITE BLOOD COUNT 12.6 K/uL (4.8-10.8)
[2017-11-03 11:41] LABS: BLOOD UREA NITROGEN 20 mg/dL (9-20); CALCIUM 8.2 mg/dl (8.6-10.4); GFR AFRICAN-AMERICAN > 60; GFR NON-AFRICAN AMERICAN > 60
[2017-11-03 12:53] LABS: EOSINOPHIL 5 % (0-4); LYMPHOCYTE 5 % (20-40); MONOCYTE 9 % (0-10); NEUTROPHIL 81 % (50-75); PLATELET ESTIMATE NORMAL (NORMAL); TOTAL CELLS COUNTED 100
--- NOTE | 2017-11-03 16:17 | CP.PCM.PN ---
Subjective - Date & Time of Evaluation Date of Evaluation: 11/03/17 Time of Evaluation: 16:17 - Subjective Subjective: Alert, awake, remains weak and unsteady with walking. Objective - Vital Signs/Intake and Output Vital Signs (last 24 hours): Temp Pulse Resp BP Pulse Ox 97.3 F L 91 H 20 93/56 L 97 11/03/17 09:00 11/03/17 09:00 11/03/17 09:00 11/03/17 09:00 11/03/17 09:00 Intake and Output: 11/03/17 11/03/17 06:59 18:59 Intake Total 840 1820 Output Total 550 Balance 840 1270 - Medications Medications: Current Medications Acetaminophen (Tylenol 325mg Tab) 650 mg PO Q6 PRN PRN Reason: Pain, moderate (4-7) Last Admin: 11/03/17 03:36 Dose: 650 mg Aspirin (Ecotrin) 81 mg PO DAILY [facility] Last Admin: 11/03/17 10:21 Dose: 81 mg Azithromycin (Zithromax) 500 mg PO Q24H [facility] Last Admin: 11/02/17 17:16 Dose: 500 mg Clopidogrel Bisulfate (Plavix) 75 mg PO DAILY [facility] Last Admin: 11/03/17 10:21 Dose: 75 mg Gabapentin (Neurontin) 300 mg PO DAILY [facility] Last Admin: 11/03/17 10:21 Dose: 300 mg Ceftriaxone Sodium (Rocephin Iv 1 Gm Duplex) 50 mls @ 100 mls/hr IVPB DAILY [facility] Last Admin: 11/03/17 10:42 Dose: 100 mls/hr Sodium Chloride (Sodium Chloride 0.9%) 1,000 mls @ 80 mls/hr IV .[id number] [facility] Last Admin: 11/03/17 04:00 Dose: Not Given Insulin Detemir (Levemir) 20 unit SC BID [facility] Last Admin: 11/03/17 10:21 Dose: 20 unit Losartan Potassium (Cozaar) 25 mg PO DAILY [facility] Last Admin: 11/03/17 10:21 Dose: 25 mg Metformin HCl (Glucophage) 500 mg PO BID [facility] Last Admin: 11/03/17 10:21 Dose: 500 mg Rosuvastatin Calcium (Crestor) 5 mg PO HS [facility] Last Admin: 11/02/17 21:27 Dose: 5 mg Zolpidem Tartrate (Ambien) 5 mg PO HS PRN PRN Reason: Insomnia Last Admin: 11/02/17 21:28 Dose: 5 mg - Labs Labs: 11/03/17 11:15 11/03/17 11:15 PT 13.8 SECONDS (9.7-12.2) H 10/27/17 14:05 INR 1.2 10/27/17 14:05 APTT 30 SECONDS (21-34) 10/27/17 14:05 Assessment and Plan - Assessment and Plan (Free Text) Assessment: Patient is seen and examined. Alert, follows commands, able to walk with assistance and walker. Discussed with DR Anand Kumar and DR Candelario, plan to discharge to [facility] for rehab today. The daughter at the bedside sighned for DNR/DNI POLST form, will send ro rehab with the patient. Antibiotics completed as per DR Candelario.
--- NOTE | 2017-11-03 16:23 | CP.PCM.PN ---
Subjective - Date & Time of Evaluation Date of Evaluation: 11/03/17 Time of Evaluation: 07:40 - Subjective Subjective: clinically same Objective - Vital Signs/Intake and Output Vital Signs (last 24 hours): Temp Pulse Resp BP Pulse Ox 97.3 F L 91 H 20 93/56 L 97 11/03/17 09:00 11/03/17 09:00 11/03/17 09:00 11/03/17 09:00 11/03/17 09:00 Intake and Output: 11/03/17 11/03/17 06:59 18:59 Intake Total 840 1820 Output Total 550 Balance 840 1270 - Medications Medications: Current Medications Acetaminophen (Tylenol 325mg Tab) 650 mg PO Q6 PRN PRN Reason: Pain, moderate (4-7) Last Admin: 11/03/17 03:36 Dose: 650 mg Aspirin (Ecotrin) 81 mg PO DAILY [facility] Last Admin: 11/03/17 10:21 Dose: 81 mg Azithromycin (Zithromax) 500 mg PO Q24H [facility] Last Admin: 11/02/17 17:16 Dose: 500 mg Clopidogrel Bisulfate (Plavix) 75 mg PO DAILY [facility] Last Admin: 11/03/17 10:21 Dose: 75 mg Gabapentin (Neurontin) 300 mg PO DAILY [facility] Last Admin: 11/03/17 10:21 Dose: 300 mg Ceftriaxone Sodium (Rocephin Iv 1 Gm Duplex) 50 mls @ 100 mls/hr IVPB DAILY [facility] Last Admin: 11/03/17 10:42 Dose: 100 mls/hr Sodium Chloride (Sodium Chloride 0.9%) 1,000 mls @ 80 mls/hr IV .[id number] [facility] Last Admin: 11/03/17 04:00 Dose: Not Given Insulin Detemir (Levemir) 20 unit SC BID [facility] Last Admin: 11/03/17 10:21 Dose: 20 unit Losartan Potassium (Cozaar) 25 mg PO DAILY [facility] Last Admin: 11/03/17 10:21 Dose: 25 mg Metformin HCl (Glucophage) 500 mg PO BID [facility] Last Admin: 11/03/17 10:21 Dose: 500 mg Rosuvastatin Calcium (Crestor) 5 mg PO HS [facility] Last Admin: 11/02/17 21:27 Dose: 5 mg Zolpidem Tartrate (Ambien) 5 mg PO HS PRN PRN Reason: Insomnia Last Admin: 11/02/17 21:28 Dose: 5 mg - Labs Labs: 11/03/17 11:15 11/03/17 11:15 PT 13.8 SECONDS (9.7-12.2) H 10/27/17 14:05 INR 1.2 10/27/17 14:05 APTT 30 SECONDS (21-34) 10/27/17 14:05 - Constitutional Appears: Well - Head Exam Head Exam: ATRAUMATIC, NORMAL INSPECTION, NORMOCEPHALIC - Eye Exam Eye Exam: EOMI, Normal appearance, PERRL Pupil Exam: NORMAL ACCOMODATION, PERRL - ENT Exam ENT Exam: Mucous Membranes Moist, Normal Exam - Neck Exam Neck Exam: Full ROM, Normal Inspection. absent: Lymphadenopathy - Respiratory Exam Respiratory Exam: Decreased Breath Sounds - Cardiovascular Exam Cardiovascular Exam: REGULAR RHYTHM, +S1, +S2 - GI/Abdominal Exam GI & Abdominal Exam: Soft, Diminished Bowel Sounds - Rectal Exam Rectal Exam: Deferred
[2017-11-03 16:39] VITALS: BP 113/72; PULSE 90; TEMP 97.9; O2SAT 98
[2017-11-05 18:28] LABS: ACETYLCHOLINE REC MOD AB 11
== END 2017-11-03 17:51 | DRG 641 ==
LOC: C.ER 12:35 → C.9E 15:03 → C.3T 16:10
PROVIDERS: ADMIT Internal Medicine Nephrology; ATTEND Internal Medicine Nephrology
DX: E87.1 Hypo-osmolality and hyponatremia (principal); E11.40 Type 2 diabetes mellitus with diabetic neuropathy, unspecified; G70.00 Myasthenia gravis without (acute) exacerbation; D72.829 Elevated white blood cell count, unspecified; S20.229A Contusion of unspecified back wall of thorax, initial encounter; E78.00 Pure hypercholesterolemia, unspecified; G70.80 Lambert-Eaton syndrome, unspecified; S80.02XA Contusion of left knee, initial encounter; E78.5 Hyperlipidemia, unspecified; F17.210 Nicotine dependence, cigarettes, uncomplicated; I10 Essential (primary) hypertension; M19.90 Unspecified osteoarthritis, unspecified site; Z66 Do not resuscitate; Z79.4 Long term (current) use of insulin; Z86.73 Personal history of transient ischemic attack (TIA), and cerebral infarction without residual deficits; Z90.49 Acquired absence of other specified parts of digestive tract; S30.0XXA Contusion of lower back and pelvis, initial encounter; X58.XXXA Exposure to other specified factors, initial encounter